=== PATIENT | male | born 1985 | race Hispanic/Latino ===

== ENCOUNTER 2017-06-22 15:25 | Emergency (ER) | payer SELFPAY | END 2017-06-22 16:09 | disposition home or self-care (01) | LOC: SCSER 15:25 | DX: J02.0 Streptococcal pharyngitis (principal); Z79.899 Other long term (current) drug therapy | CPT/HCPCS: 87430; 99283 ==

== ENCOUNTER 2017-12-16 05:48 | Emergency (ER) | payer OTHER, SELFPAY ==
[2017-12-16] MEDS ORDERED: Lidocaine 1% w/Epinephrine 1:100K 20 ML VIAL ONE (06:12)
[2017-12-16] MEDS ORDERED: Adacel (T-DAP) 0.5 ML VIAL ONE (06:40)
[2017-12-16] MEDS ORDERED: Fentanyl 100 MCG/2 ML VIAL ONE (06:40)
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
[2017-12-16] MEDS ORDERED: ISOVUE-370 76%-LOCM 1 ML ONE (13:33)
== END 2017-12-16 09:05 | disposition home or self-care (01) ==
LOC: ERS 05:48
DX: S01.112A Laceration without foreign body of left eyelid and periocular area, initial encounter (principal); S30.1XXA Contusion of abdominal wall, initial encounter; S20.219A Contusion of unspecified front wall of thorax, initial encounter; S60.222A Contusion of left hand, initial encounter; F10.129 Alcohol abuse with intoxication, unspecified; V49.9XXA Car occupant (driver) (passenger) injured in unspecified traffic accident, initial encounter
CPT/HCPCS: 12013; 70450; 71260; 72125; 74177; 90471; 90715; 96361; 96374; J2001; J3010

== ENCOUNTER 2017-12-22 18:01 | Emergency (ER) | payer OTHER, SELFPAY | END 2017-12-22 18:34 | disposition home or self-care (01) | LOC: ERS 18:01 | DX: S01.112D Laceration without foreign body of left eyelid and periocular area, subsequent encounter (principal); X58.XXXD Exposure to other specified factors, subsequent encounter ==